=== PATIENT | female | born 2000 | race Caucasian/White ===

== ENCOUNTER 2023-09-27 16:01 | Emergency (ER) | payer BC, OTHER ==
[2023-09-27 16:47] LABS: Absolute Lymphocytes (CBC) 3.1 K/uL (0.7-4.9); Hematocrit 40.6 % (36.0-45.0); Lymphocytes % 45.9 % (15.3-44.8); MCV 96.3 fL (80-100); MPV 6.7 fL (7.6-11.3); Platelets 315 thou/uL (152-406); RBC Red Blood Cell Count 4.21 M/uL (3.86-4.86)
[2023-09-27 16:51] LABS: Specific Gravity 1.005 (1.005-1.030)
[2023-09-27 16:52] LABS: Specific Gravity 1.005 (1.005-1.030); Urine Bilirubin NEGATIVE (Negative); Urine Blood Negative (Negative); Urine Clarity Clear (Clear); Urine Color Colorless (Yellow); Urine Glucose NEGATIVE (Negative); Urine Protein NEGATIVE (Negative); Urine Urobilinogen Normal (Normal); Urine pH 6.5 (5.0-7.0)
[2023-09-27 16:55] LABS: Protime INR 0.88
--- NOTE | 2023-09-27 16:56 | RAD REPORT ---
EXAM DESCRIPTION: CT - Head Brain Wo Cont - 09/27/2023 4:47 pm CLINICAL HISTORY: Alteration of awareness/confusion COMPARISON: None TECHNIQUE: Computed axial tomography of the head was obtained. IV contrast was not requested. All CT scans are performed using dose optimization technique as appropriate and may include automated exposure control or mA/KV adjustment according to patient size. FINDINGS: An intracranial bleed is not seen The ventricles are normal in caliber No extra-axial fluid collection is noted. No significant hyperdensity within the brain Fluid within the sinuses/ mastoids is not seen. IMPRESSION: No acute intracranial abnormality is seen If patient's symptoms persist MRI of the brain would be recommended
[2023-09-27 17:02] LABS: Barbiturates NEGATIVE (NEGATIVE); Benzodiazepines NEGATIVE (NEGATIVE); Cocaine NEGATIVE (NEGATIVE); METHAMPHETAM NEGATIVE (NEGATIVE); Methadone NEGATIVE (NEGATIVE); Opiates NEGATIVE (NEGATIVE); Phencyclidine NEGATIVE (NEGATIVE); THC Cannibis NEGATIVE (NEGATIVE)
[2023-09-27 17:19] LABS: ALT/SGPT 22 U/L (13-56); AST/SGOT 15 U/L (15-37); Albumin 3.9 g/dL (3.4-5.0); Alkaline Phosphatase 96 U/L (45-117); BUN Blood Urea Nitrogen 8 mg/dL (7-18); Bicarbonate 27 mEq/L (21-32); Bilirubin Total 0.2 mg/dL (0.2-1.0); Glomerular Filtration Rate 120 ml/min (=/>90); Glucose Level 101 mg/dL (74-106); Potassium 3.8 mEq/L (3.5-5.1); Protein, Total 8.1 g/dL (6.4-8.2); Sodium Level 142 mEq/L (136-145)
[2023-09-27 17:22] LABS: Bilirubin Direct < 0.1 mg/dL (0-0.2); Bilirubin Indirect, Calculated ND mg/dL (0.2-0.8)
[2023-09-27] MEDS ORDERED: NA CHLORIDE 0.9% 1,000 ML ONE (19:23)
--- NOTE | 2023-09-27 21:10 | EDPHYS ---
Physician Documentation [facility] Name: Minnie Stein Age: 23 yrs Sex: Female : 2000 Arrival Date: 09/27/2023 Time: 16:01 Bed 8 Private MD: ED Physician Dequan Aburto HPI: 09/27 16:29 This 23 yrs old Female presents to ER via EMS with complaints of Altered Mental Status. kb 16:29 Patient is a 23-year-old female with a history of anxiety and depression who presents kb after being found unconscious on the ground outside of [facility] just prior to arrival. By standards found patient and woke her up, called 911. Patient has no complaints at this time. Denies nausea, vomiting, abdominal pain, chest pain, shortness of breath, headache. Denies any drug or alcohol use. Oriented to self and location. Patient states is never happened before. Positive for tangential speech. . Historical: - Allergies: 16:18 No Known Allergies; hb ROS: 16:24 Constitutional: Negative for fever, chills, and weight loss, kb 16:24 Neuro: Positive for altered mental status, syncope, 16:24 All other systems are negative, Exam: 16:24 Constitutional: This is a well developed, well nourished patient who is awake, alert, kb and in no acute distress. Head/Face: Normocephalic, atraumatic. ENT: Moist Mucous membranes Cardiovascular: Regular rate Respiratory: Respirations even and unlabored. No increased work of breathing. Talking in full sentences Abdomen/GI: Soft, non-tender. No distention Skin: Warm, dry with normal turgor. Normal color. MS/ Extremity: Pulses equal, no cyanosis. Neurovascular intact. Full, normal range of motion. 16:24 Neuro: Orientation: to person, place, Mentation: able to follow commands, Motor: moves all fours, Vital Signs: 16:08 BP 132 / 82; Pulse 89; Resp 16; Temp 98.4; Pulse Ox 100% on R/A; hb 21:24 BP 106 / 72; Pulse 81; Resp 16; Pulse Ox 100% on R/A; jb4 MDM: 16:11 Patient medically screened. kb 16:24 Data reviewed: vital signs, nurses notes. kb 16:28 Differential Diagnosis: electrolyte abnormality, alcohol intoxication, intracranial kb bleed, overdose. Historians other than the Patient: EMS: [facility]. 18:10 ED course: EtOH 326. Patient sleeping in recliner at this time. We will continue to kb monitor. 21:07 ED course: pt is awake, alert and oriented x4. Pt ambulates with steady gait. Brother kb at bedside to take pt home. . 21:08 Counseling: I had a detailed discussion with the patient and/or guardian regarding the kb historical points, exam findings, and any diagnostic results supporting the discharge/admit diagnosis, lab results, the need for outpatient follow up, a family practitioner, to return to the emergency department if symptoms worsen or persist or if there are any questions or concerns that arise at home. 09/27 16:12 Order name: Acetaminophen; Complete Time: 17:23 kb 09/27 16:12 Order name: Basic Metabolic Panel; Complete Time: 17:23 kb 09/27 16:12 Order name: CBC with Diff; Complete Time: 16:55 kb 09/27 16:12 Order name: ETOH Level; Complete Time: 17:23 kb 09/27 16:12 Order name: Hepatic Function; Complete Time: 17:23 kb 09/27 16:12 Order name: PT-INR; Complete Time: 16:55 kb 09/27 16:12 Order name: Test, Urine; Complete Time: 16:58 kb 09/27 16:12 Order name: Ptt, Activated; Complete Time: 16:55 kb 09/27 16:12 Order name: Salicylate; Complete Time: 17:41 kb 09/27 16:12 Order name: Urinalysis w/ reflexes; Complete Time: 16:53 kb 09/27 16:12 Order name: Urine Drug Screen; Complete Time: 17:03 kb 09/27 16:12 Order name: CT Head Brain wo Cont; Complete Time: 16:58 kb 09/27 16:12 Order name: EKG; Complete Time: 16:12 kb 09/27 16:12 Order name: EKG - Nurse/Tech; Complete Time: 19:17 kb 09/27 16:12 Order name: IV Saline Lock; Complete Time: 19:17 kb 09/27 16:12 Order name: Labs collected and sent; Complete Time: 19:17 kb Administered Medications: 19:30 Drug: NS 0.9% IV 1000 ml IV at 1000 ml once Route: IV; Rate: 1000 ml; Site: left jb4 antecubital; Disposition: 09/28 20:02 Co-signature as Attending Physician, Dequan Aburto MD I reviewed the patient's care rn provided by the Advanced Practice Provider and agree with the diagnosis and treatment plan. Disposition Summary: 09/27/23 21:09 Discharge Ordered Notes: Location: Home kb Condition: Stable kb Diagnosis - Alcohol use, unspecified with intoxication kb Followup: kb - With: Emergency Department - When: As needed - Reason: Worsening of condition Followup: kb - With: Private Physician - When: 2 - 3 days - Reason: Recheck today's complaints, Continuance of care, Re-evaluation by your physician Discharge Instructions: - Discharge Summary Sheet kb - Alcohol Intoxication, [id number] kb Forms: - Medication Reconciliation Form kb - Thank You Letter kb - Antibiotic Education kb - Prescription Opioid Use kb - Patient Portal Instructions kb - Leadership Thank You Letter kb Signatures: Dispatcher [employer] EDMS Loretta Guido, LUBRICATOR GRANULATOR-C LUBRICATOR GRANULATOR-Ckb Dequan Aburto MD MD rn Baxter, Heather, RN RN Johnathan De La Vega RN RN jb4 Corrections: (The following items were deleted from the chart) 09/27 19:17 16:12 Suicide Screening ([facility]) ordered. jb4
--- NOTE | 2023-09-27 21:10 | ER ---
Nurse's Notes [facility] Name: Minnie Stein Age: 23 yrs Sex: Female : 2000 Arrival Date: 09/27/2023 Time: 16:01 Bed 8 Private MD: Diagnosis: Alcohol use, unspecified with intoxication Presentation: 09/27 16:08 Chief complaint: EMS states: found [place] [facility] [place] [address], was not responding, pt arrives iw to ER, alert but confused. Coronavirus screen: At this time, the client does not indicate any symptoms associated with coronavirus-19. Ebola Screen: Patient negative for fever greater than or equal to 101.5 degrees Fahrenheit, and additional compatible Ebola Virus Disease symptoms Patient denies exposure to infectious person. Patient denies travel to an Ebola-affected area in the 21 days before illness onset. No symptoms or risks identified at this time. Initial Sepsis Screen: Does the patient meet any 2 criteria? No. Patient's initial sepsis screen is negative. Does the patient have a suspected source of infection? No. Patient's initial sepsis screen is negative. Risk Assessment: Do you want to hurt yourself or someone else? Patient reports no desire to harm self or others. Onset of symptoms was September 27, 2023. 16:08 Method Of Arrival: EMS: [facility] iw 16:08 Acuity: ZENAIDA 2 hb Historical: - Allergies: 16:18 No Known Allergies; hb Screenin:24 [facility] ED Fall Risk Assessment (Adult) History of falling in the last 3 months, jb4 including since admission No falls in past 3 months (0 pts) Confusion or Disorientation No (0 pts). Abuse screen: Denies threats or abuse. Nutritional screening: No deficits noted. Tuberculosis screening: No symptoms or risk factors identified. Assessment: 17:48 Reassessment: Patient appears in no apparent distress at this time. pt sleeping in iw recliner chair. 19:15 General: Appears in no apparent distress. comfortable, Behavior is calm, cooperative, jb4 appropriate for age. Pain: Denies pain. Neuro: Level of Consciousness is awake, alert, obeys commands, Oriented to person, place, time, situation. Cardiovascular: Patient's skin is warm and dry. Respiratory: Airway is patent Respiratory effort is even, unlabored, Respiratory pattern is regular, symmetrical. GI: No signs and/or symptoms were reported involving the gastrointestinal system. : No signs and/or symptoms were reported regarding the genitourinary system. EENT: No signs and/or symptoms were reported regarding the EENT system. Derm: Skin is intact, Skin is pink, warm \T\ dry. Musculoskeletal: Circulation, motion, and sensation intact. Range of motion: intact in all extremities. Vital Signs: 16:08 BP 132 / 82; Pulse 89; Resp 16; Temp 98.4; Pulse Ox 100% on R/A; hb 21:24 BP 106 / 72; Pulse 81; Resp 16; Pulse Ox 100% on R/A; jb4 ED Course: 16:02 Patient arrived in ED. iw 16:10 Triage completed. iw 16:11 Loretta Guido FNP-C is PHCP. kb 16:11 Dequan Aburto MD is Attending Physician. kb 16:18 Arm band placed on. hb 16:48 CT Head Brain wo Cont In Process Unspecified. EDMS 19:56 Johnathan Vickers, RN is Primary Nurse. jb4 21:24 Patient has correct armband on for positive identification. Bed in low position. Call jb4 light in reach. Side rails up X 1. Client placed on continuous cardiac and pulse oximetry monitoring. NIBP monitoring applied. 21:24 No provider procedures requiring assistance completed. IV discontinued, intact, jb4 bleeding controlled, No redness/swelling at site. Pressure dressing applied. Administered Medications: 19:30 Drug: NS 0.9% IV 1000 ml IV at 1000 ml once Route: IV; Rate: 1000 ml; Site: left jb4 antecubital; Medication: 21:24 VIS not applicable for this client. jb4 Outcome: 21:09 Discharge ordered by . kb 21:24 Discharged to home ambulatory, with family, jb4 21:24 Condition: stable 21:24 Discharge instructions given to patient, Instructed on discharge instructions, follow up and referral plans. Demonstrated understanding of instructions, follow-up care, 21:26 Patient left the ED. jb4 Signatures: Dispatcher [employer] EDMS Loretta Guido FNP-C FNP-Ckb Williams, Irene, RN RN Miriam Masters RN RN Johnathan Vickers, VANESSA RN jb4 Corrections: (The following items were deleted from the chart) 16:18 16:08 Acuity: ZENAIDA 3 iw 16:19 16:08 Chief complaint: EMS states: found [place] [facility] on [address], was not responding, pt iw arrives to ER A\T\O X 4 iw 19:30 19:30 NS 0.9% IV 1000 ml IV at 1000 ml in right antecubital jb4 jb4
[2023-09-27 22:21] VITALS: TEMP 98.4; O2SAT 100
[2023-09-27 22:23] VITALS: BP 106/72
--- NOTE | 2023-10-02 17:00 | EKG ---
Test Date: 2023-09-27 Test Time: 19:16:36 School Manager: DANYA MEASUREMENT RESULTS: Intervals: Rate: 70 ID: [id number] QRSD: 86 QT: 384 QTc: 414 Clarence: P: 43 ID: [id number] QRS: 90 T: 64 INTERPRETIVE STATEMENTS: Normal sinus rhythm Rightward axis Septal infarct, age undetermined Abnormal ECG No previous ECG available for comparison Electronically Signed On 10-02-23 16:54:04 VISUALIZATION DEVELOPER by Tucker Whatley
== END 2023-09-27 21:26 | disposition home or self-care (01) ==
LOC: ER 16:01
DX: F10.929 Alcohol use, unspecified with intoxication, unspecified (principal)
CPT/HCPCS: 93005; 85025; 80048; 36415; 81025; 85610; 80076; 85730; 81003; 80307; 70450; 99284; 80143; 80179; 82077; J7030

== ENCOUNTER → 2023-12-07 | Emergency (ER) | payer BC ==
[~2023-12-07] MED LIST: KETOROLAC 30 MG/ML INJ ONE; METOCLOPRAMIDE 10 MG/2mL INJ ONE; MORPHINE 4 MG/ML SYR ONE; NA CHLORIDE 0.9% 1,000 ML ONE; ONDANSETRON 4 MG/2 ML VIAL ONE; TAMSULOSIN 0.4 MG SR CAP ONE
[2023-12-07 03:16] LABS: Absolute Lymphocytes (CBC) 1.4 K/uL (0.7-4.9); Hematocrit 37.9 % (36.0-45.0); Lymphocytes % 18.7 % (15.3-44.8); MPV 7.1 fL (7.6-11.3); Platelets 272 thou/uL (152-406)
[2023-12-07 03:26] LABS: Albumin 3.8 g/dL (3.4-5.0); Bilirubin Total 0.6 mg/dL (0.2-1.0); Potassium 3.8 mEq/L (3.5-5.1); Protein, Total 7.4 g/dL (6.4-8.2)
[2023-12-07 03:50] LABS: Specific Gravity > 1.030 (1.005-1.030)
[2023-12-07 03:52] LABS: Specific Gravity > 1.030 (1.005-1.030); Urine Bacteria 20-50 /HPF (<20); Urine Bilirubin NEGATIVE (Negative); Urine Blood 3+ (Negative); Urine Clarity Extremely Turbid (Clear); Urine Color Yellow (Yellow); Urine Glucose NEGATIVE (Negative); Urine Mucus 4+ /HPF (None Seen); Urine Protein 1+ (Negative); Urine RBC >50 /HPF (None Seen); Urine Urobilinogen Normal (Normal); Urine pH 5.5 (5.0-7.0)
--- NOTE | 2023-12-07 05:15 | EDPHYS ---
Physician Documentation [facility] Name: Minnie Stein Age: 23 yrs Sex: Female : 2000 Arrival Date: 12/07/2023 Time: 02:32 Bed 7 Private MD: ED Physician Alan Yeboah HPI: 12/07 02:41 This 23 yrs old Female presents to ER via Ambulatory with complaints of sp4 Possible Kidney Stone. 03:03 3-year-old female presents with acute onset right flank pain the right upper back pain sp4 with radiation of pain to the right groin, pain this appears to be spasmodic.. 03:04 Pain started acutely 2 hours ago patient denied bloody urine and denied dysuria. . sp4 Historical: - Allergies: 02:41 No Known Allergies; lg3 - Home Meds: 02:41 sertraline 100 mg oral tablet [Active]; buspirone 10 mg Oral tablet [Active]; bupropion lg3 HCl 300 mg Oral Tablet, Extended Release 24 hr [Active]; Adipex-P 37.5 mg oral tablet [Active]; Imitrex 100 mg Oral tablet [Active]; Mirena 21 mcg/24 hours (8 yrs) 52 mg intrauterine Intrauterine Device [Active]; - PMHx: 02:41 Anxiety; Depressive disorder; lg3 - PSHx: 02:41 fallopian tube removal; lg3 - Immunization history:: Adult Immunizations up to date, Client reports receiving the 2nd dose of the Covid vaccine, Flu vaccine is up to date. - Social history:: Smoking status: Patient denies any tobacco usage or history of. Patient/guardian denies using alcohol, street drugs. - Family history:: not pertinent. ROS: 03:04 Constitutional: Negative for fever, chills, and weight loss, positive for right back sp4 pain , positive right flank pain , positive right groin pain 03:04 All other systems are negative, Exam: 03:04 Constitutional: This is a well developed, well nourished patient who is awake, alert, sp4 and in no acute distress. Head/Face: Normocephalic, atraumatic. Eyes: Pupils equal round and reactive to light, extra-ocular motions intact. Lids and lashes normal. Conjunctiva and sclera are not injected. Cornea within normal limits. Periorbital areas with no swelling, redness, or edema. ENT: Nares patent. No nasal discharge, no septal abnormalities noted. Tympanic membranes are normal and external auditory canals are clear. Oropharynx with no redness, swelling, or masses, exudates, or evidence of obstruction, uvula midline. Mucous membranes moist. Neck: Trachea midline, no thyromegaly or masses palpated, and no cervical lymphadenopathy. Supple, full range of motion without nuchal rigidity, or vertebral point tenderness. Chest/axilla: Normal chest wall appearance and motion. Nontender with no deformity. No lesions are appreciated. Cardiovascular: Regular rate and rhythm with a normal S1 and S2. No gallops, murmurs, or rubs. Normal PMI, no JVD. No pulse deficits. Respiratory: Lungs have equal breath sounds bilaterally, clear to auscultation and percussion. No rales, rhonchi or wheezes noted. No increased work of breathing, no retractions or nasal flaring. Abdomen/GI: Soft, non-tender, with normal bowel sounds. No distension or tympany. No guarding or rebound. No evidence of tenderness throughout. Back: No spinal tenderness. Positive right costovertebral angle tenderness Skin: Warm, dry with normal turgor. Normal color with no rashes, no lesions, and no evidence of cellulitis. MS/ Extremity: Pulses equal, no cyanosis. Neurovascular intact. Full, normal range of motion. Neuro: Awake and alert, GCS 15, oriented to person, place, time, and situation. Cranial nerves II-XII grossly intact. Motor strength 5/5 in all extremities. Sensory grossly intact. Psych: Awake, alert, with orientation to person, place and time. Behavior, mood, and affect are within normal limits Vital Signs: 02:40 BP 122 / 90; Pulse 54; Resp 17 S; Temp 97(TE); Pulse Ox 100% on R/A; Weight 79.38 kg; lg3 Height 5 ft. 5 in. (R); Pain 10/10; 03:00 BP 112 / 72; Pulse 59; Resp 17; Pulse Ox 100% on R/A; ha1 03:30 BP 104 / 60; Pulse 68; Resp 17 S; Pulse Ox 99% on R/A; ha1 04:30 BP 96 / 67; Pulse 63; Resp 17 S; Pulse Ox 99% on R/A; ha1 02:40 Body Mass Index 29.12 (79.38 kg, 165.1 cm) lg3 02:40 Pain Scale: Adult lg3 MDM: 02:42 Patient medically screened. sp4 05:07 ED course: IMPRESSION: 1. Tiny 1 to 2 mm stone at the right ureterovesicular junction. sp4 Mild right-sided hydronephrosis. 2. Hepatic steatosis. 3. Moderate stool burden. 4. Trace free fluid in the pelvis, could be physiologic. . 12/07 02:42 Order name: CBC with Diff; Complete Time: 03:51 sp4 12/07 02:42 Order name: CMP; Complete Time: 03:51 sp4 12/07 02:42 Order name: Lipase; Complete Time: 03:51 sp4 12/07 02:42 Order name: Test, Urine; Complete Time: 03:51 sp4 12/07 02:42 Order name: Urinalysis w/ reflexes; Complete Time: 05:07 sp4 12/07 02:50 Order name: CT Abd/Pelvis - IV Contrast Only sp4 12/07 02:42 Order name: IV Saline Lock; Complete Time: 02:54 sp4 12/07 02:42 Order name: Labs collected and sent; Complete Time: 02:54 sp4 Administered Medications: 03:10 Drug: NS 0.9% IV 1000 ml IV at 1 bolus Per protocol; 1000 mL bolus Route: IV; Rate: 1 ha1 bolus; Site: left antecubital; 05:07 Follow up: Response: No adverse reaction; IV Status: Completed infusion; IV Intake: ha1 1000ml 03:10 Drug: metoCLOPramide IVP 10 mg IVP once; over 1 to 2 minutes Route: IVP; Site: left ha1 antecubital; 04:00 Follow up: Response: No adverse reaction ha1 03:13 Drug: morphine IVP or IV 4 mg IVP once over 4 mins Route: IVP; Infused Over: 4 mins; ha1 Site: left antecubital; 03:30 Follow up: Response: No adverse reaction; Pain is decreased; RASS: Alert and Calm (0) ha1 03:30 Drug: Ondansetron IVP 4 mg IVP once; over 2 minutes Route: IVP; Site: left antecubital; ha1 04:00 Follow up: Response: No adverse reaction ha1 04:30 Drug: Ketorolac IVP 30 mg IVP once Route: IVP; Site: left antecubital; ha1 05:06 Follow up: Response: No adverse reaction; Pain is decreased ha1 05:26 Drug: Flomax PO 0.4 mg PO once Route: PO; ha1 Disposition Summary: 12/07/23 05:10 Discharge Ordered Notes: Location: Home sp4 Problem: new sp4 Symptoms: have improved sp4 Condition: Stable sp4 Diagnosis - Right ureteral calculus, kidney stone sp4 Followup: sp4 - With: Mckay Ag MD - When: As needed - Reason: Discharge Instructions: - Discharge Summary Sheet sp4 - Kidney Stones, [id number] sp4 Forms: - Patient Portal Instructions sp4 Prescriptions: - Flomax 0.4 mg Oral capsule - take 1 capsule ORAL route daily; 30 capsule; Refills: 0, Product Selection sp4 Permitted - ketorolac 10 mg Oral tablet - take 1 tablet ORAL route every 8 hours PRN pain; 30 tablet; Refills: 0, Product sp4 Selection Permitted - ondansetron 8 mg Oral Tablet,disintegrating - take 1 tablet ORAL route every 8 hours PRN nausea; 30 tablet; Refills: 0, sp4 Product Selection Permitted Signatures: Dispatcher [employer] Patricia Johnston RN RN lg3 Katey Herrera RN RN ha1 Alan Yeboah MD MD sp4 Corrections: (The following items were deleted from the chart) 02:44 02:41 PMHx: Anemia; lg3 lg3
--- NOTE | 2023-12-07 05:15 | ER ---
Nurse's Notes [facility] Name: Minnie Stein Age: 23 yrs Sex: Female : 2000 Arrival Date: 12/07/2023 Time: 02:32 Bed 7 Private MD: Diagnosis: Right ureteral calculus, kidney stone Presentation: 12/07 02:40 Chief complaint: Patient states: right flank pain and lower abdomen pain X2 hours. pain lg3 10/10. Coronavirus screen: Client denies travel out of the [place] in the last 14 days. At this time, the client does not indicate any symptoms associated with coronavirus-19. Ebola Screen: No symptoms or risks identified at this time. Initial Sepsis Screen: Does the patient meet any 2 criteria? No. Patient's initial sepsis screen is negative. Does the patient have a suspected source of infection? No. Patient's initial sepsis screen is negative. Risk Assessment: Do you want to hurt yourself or someone else? Patient reports no desire to harm self or others. Onset of symptoms was December 07, 2023. 02:40 Method Of Arrival: Ambulatory lg3 02:40 Acuity: ZENAIDA 3 lg3 Triage Assessment: 02:41 General: Appears in no apparent distress. uncomfortable, Behavior is calm, cooperative. lg3 Pain: Complains of pain in right flank, right lower quadrant and left lower quadrant Pain currently is 10 out of 10 on a pain scale. EENT: No deficits noted. No signs and/or symptoms were reported regarding the EENT system. Neuro: No deficits noted. Rehman Agitation-Sedation Scale (RASS): 0 - Alert and Calm Level of Consciousness is awake, alert, obeys commands, Oriented to person, place, time, situation. Cardiovascular: No deficits noted. Denies chest pain, shortness of breath, Capillary refill < 3 seconds Clubbing of nail beds is absent JVD is absent Patient's skin is warm and dry. Respiratory: No deficits noted. Airway is patent Respiratory effort is even, unlabored, Respiratory pattern is regular, symmetrical. GI: No deficits noted. Abdomen is round non-distended, Reports lower abdominal pain. : No signs and/or symptoms were reported regarding the genitourinary system. Derm: No deficits noted. No signs and/or symptoms reported regarding the dermatologic system. Skin is intact, is healthy with good turgor, Skin is dry, Skin is normal, Skin temperature is warm. Musculoskeletal: No deficits noted. Circulation, motion, and sensation intact. Range of motion: intact in all extremities. Historical: - Allergies: 02: No Known Allergies; lg3 - Home Meds: 02:41 sertraline 100 mg oral tablet [Active]; buspirone 10 mg Oral tablet [Active]; bupropion lg3 HCl 300 mg Oral Tablet, Extended Release 24 hr [Active]; Adipex-P 37.5 mg oral tablet [Active]; Imitrex 100 mg Oral tablet [Active]; Mirena 21 mcg/24 hours (8 yrs) 52 mg intrauterine Intrauterine Device [Active]; - PMHx: :41 Anxiety; Depressive disorder; lg3 - PSHx: :41 fallopian tube removal; lg3 - Immunization history:: Adult Immunizations up to date, Client reports receiving the 2nd dose of the Covid vaccine, Flu vaccine is up to date. - Social history:: Smoking status: Patient denies any tobacco usage or history of. Patient/guardian denies using alcohol, street drugs. - Family history:: not pertinent. Screenin:43 [facility] ED Fall Risk Assessment (Adult) History of falling in the last 3 months, ha1 including since admission No falls in past 3 months (0 pts) Confusion or Disorientation No (0 pts) Intoxicated or Sedated No (0 pts) Impaired Gait No (0 pts) Mobility Assist Device Used No (0 pt) Altered Elimination Score/Fall Risk Level 0 - 2 = Low Risk Oriented to surroundings, Maintained a safe environment, Hourly rounding (assess needs \T\ fall precautionary measures) done. Abuse screen: Denies threats or abuse. Denies injuries from another. Nutritional screening: No deficits noted. Tuberculosis screening: No symptoms or risk factors identified. Assessment: 02:43 General: Appears uncomfortable, Behavior is calm, cooperative, appropriate for age. ha1 Pain: Complains of pain in back and left lower quadrant and right flank Pain radiates to back. Neuro: Level of Consciousness is awake, alert, obeys commands, Oriented to person, place, time, situation. Cardiovascular: Capillary refill < 3 seconds Patient's skin is warm and dry. Respiratory: Airway is patent Respiratory effort is even, unlabored, Respiratory pattern is regular, symmetrical. GI: Abdomen is round non-distended, Bowel sounds present X 4 quads. Abd is soft and non tender X 4 quads. : Urine is clear, Reports possible kidney stone. Derm: Skin is pink, warm \T\ dry. Musculoskeletal: Circulation, motion, and sensation intact. 03:30 Reassessment: Patient and/or family updated on plan of care and expected duration. Pain ha1 level reassessed. Patient is alert, oriented x 3, equal unlabored respirations, skin warm/dry/pink. pain 4/10 Patient states feeling better. Patient states symptoms have improved. 04:30 Reassessment: Patient and/or family updated on plan of care and expected duration. Pain ha1 level reassessed. Patient is alert, oriented x 3, equal unlabored respirations, skin warm/dry/pink. Vital Signs: 02:40 BP 122 / 90; Pulse 54; Resp 17 S; Temp 97(TE); Pulse Ox 100% on R/A; Weight 79.38 kg; lg3 Height 5 ft. 5 in. (R); Pain 10/10; 03:00 BP 112 / 72; Pulse 59; Resp 17; Pulse Ox 100% on R/A; ha1 03:30 BP 104 / 60; Pulse 68; Resp 17 S; Pulse Ox 99% on R/A; ha1 04:30 BP 96 / 67; Pulse 63; Resp 17 S; Pulse Ox 99% on R/A; ha1 02:40 Body Mass Index 29.12 (79.38 kg, 165.1 cm) lg3 02:40 Pain Scale: Adult lg3 ED Course: 02:34 Patient arrived in ED. jj6 02:41 Triage completed. lg3 02:41 Alan Yeboah MD is Attending Physician. sp4 02:41 Arm band placed on right wrist. lg3 02:43 Katey Herrera RN is Primary Nurse. ha1 02:43 Patient has correct armband on for positive identification. Placed in gown. Bed in low ha1 position. Call light in reach. Side rails up X 1. Adult w/ patient. 02:51 Radiology exam delayed due to test not completed at this time. IV insertion eh4 attempt and/or patient not having appropriate IV at this time. 03:00 Inserted saline lock: 22 gauge in left antecubital area, using aseptic technique. Blood ha1 collected. 03:17 CMP Sent. ha1 03:17 Lipase Sent. ha1 03:41 Test, Urine Sent. ha1 03:41 Urinalysis w/ reflexes Sent. ha1 04:17 CT Abd/Pelvis - IV Contrast Only In Process Unspecified. EDMS 05:10 Mckay Ag MD is Referral Physician. sp4 05:26 No provider procedures requiring assistance completed. IV discontinued, intact, ha1 bleeding controlled, No redness/swelling at site. Pressure dressing applied. 05:27 Provided Education on: follow up with urology. discharge education given. ha1 Administered Medications: 03:10 Drug: NS 0.9% IV 1000 ml IV at 1 bolus Per protocol; 1000 mL bolus Route: IV; Rate: 1 ha1 bolus; Site: left antecubital; 05:07 Follow up: Response: No adverse reaction; IV Status: Completed infusion; IV Intake: ha1 1000ml 03:10 Drug: metoCLOPramide IVP 10 mg IVP once; over 1 to 2 minutes Route: IVP; Site: left ha1 antecubital; 04:00 Follow up: Response: No adverse reaction ha1 03:13 Drug: morphine IVP or IV 4 mg IVP once over 4 mins Route: IVP; Infused Over: 4 mins; ha1 Site: left antecubital; 03:30 Follow up: Response: No adverse reaction; Pain is decreased; RASS: Alert and Calm (0) ha1 03:30 Drug: Ondansetron IVP 4 mg IVP once; over 2 minutes Route: IVP; Site: left antecubital; ha1 04:00 Follow up: Response: No adverse reaction ha1 04:30 Drug: Ketorolac IVP 30 mg IVP once Route: IVP; Site: left antecubital; ha1 05:06 Follow up: Response: No adverse reaction; Pain is decreased ha1 05:26 Drug: Flomax PO 0.4 mg PO once Route: PO; ha1 Medication: 05:13 VIS not applicable for this client. ha1 Intake: 05:07 IV: 1000ml; Total: 1000ml. ha1 Outcome: 05:10 Discharge ordered by . sp4 05:27 Discharged to home ambulatory, with family, ha1 05:27 Condition: stable 05:27 Discharge instructions given to patient, family, Instructed on discharge instructions, follow up and referral plans. medication usage, Demonstrated understanding of instructions, follow-up care, medications, Prescriptions given X 3, 05:28 Patient left the ED. ha1 Signatures: Dispatcher [employer] EDPatricia Rolle RN RN lg3 Maricarmen Samano jj6 Katey Herrera RN RN ha1 Ronak Alicia 4 Alan Yeboah MD MD sp4 Corrections: (The following items were deleted from the chart) 02:44 02:41 PMHx: Anemia; lg3 lg3
[2023-12-07 06:32] VITALS: TEMP 97
[2023-12-07 07:04] VITALS: BP 96/67; O2SAT 99
--- NOTE | 2023-12-07 12:10 | RAD REPORT ---
EXAM DESCRIPTION: CT - Abdomen Pelvis W Contrast - 12/07/2023 7:16 am CLINICAL HISTORY: 23 years Female; right flank and lower abd pain; IV ONLY Bed Name: 7 TECHNIQUE: CT of the abdomen and pelvis with intravenous contrast. All CT scans at this facility use dose modulation, iterative reconstruction, and/or weight based dosi ng when appropriate to reduce radiation dose to as low as reasonably achievable. COMPARISON: None. FINDINGS: Lower thorax: Lung bases are clear Abdomen: Stomach: Within normal limits Liver: No focal lesions. Hepatic steatosis. No intrahepatic ductal distention. Gallbladder: Nondistended Pancreas: Within normal limits Spleen: Within normal limits Right kidney: Mild hydronephrosis. Delayed nephrogram. Tiny 1 to 2 mm stone at the ureterovesicular j unction. Left kidney: No hydronephrosis. No focal lesion. Adrenal glands: Within normal limits Vascular structures: Within normal limits Nodes: No lymphadenopathy by size criteria Pelvis: Small bowel: No significant distention. Appendix: Within normal limits Colon: No distention or acute pericolonic edema. Moderate stool burden. Peritoneum: No free air. Trace free fluid in the pelvis. Bones: No acute bone findings. Bladder: Under distended, limiting evaluation. Reproductive organs: No acute findings. Intrauterine device visualized. IMPRESSION: 1. Tiny 1 to 2 mm stone at the right ureterovesicular junction. Mild right-sided hydro nephrosis. 2. Hepatic steatosis. 3. Moderate stool burden. 4. Trace free fluid in the pelvis, could be physiologic. Electronically signed by: Wendy Mistry MD 12/07/2023 04:40 AM MOVING WORKER Due to temporary technical issues with the PACS/Fluency reporting system, reports are being signed by the in house radiologist without review as a courtesy to ensure prompt reporting. The interpreting r adiologist is fully responsible for the content of the report.
== END ==
LOC: ER 02:32
DX: N20.2 Calculus of kidney with calculus of ureter (principal)
CPT/HCPCS: 85025; 81001; 36415; 81025; 83690; 80053; 74177; Q9967; J2765; J2405; J7030